=== PATIENT | female | born 1980 | race Two or more races ===

== ENCOUNTER 2025-07-22 12:53 | Outpatient (CLI) | payer OTHER | END 2025-07-22 13:04 | disposition home or self-care (01) | LOC: SONOGRAMA 12:53 | PROVIDERS: ATTEND Internal Medicine | DX: E04.2 Nontoxic multinodular goiter (principal) ==

== ENCOUNTER 2025-07-23 10:25 | Outpatient (CLI) | payer OTHER ==
[2025-07-23 11:58] LABS: URINE APPEARANCE Clear; URINE BILIRRUBIN Negative (NEGATIVE); URINE BLOOD Small; URINE COLOR Yellow; URINE GLUCOSE Negative (NEGATIVE); URINE KETONE Negative (NEGATIVE); URINE LEUKOCYTE Small; URINE NITRATE Negative; URINE PROTEIN Negative (NEGATIVE); URINE UROBILINOGEN 0.2 E.U./dl
[2025-07-23 12:03] LABS: URINE BACTERIA 1076.2 uL (0.0-1933); URINE EPITHELIAL CELLS 78.6 uL (0.0-38.8); URINE RBC 13.7 uL (0.0-20.8); URINE WBC 29.5 uL (0.0-23.2)
[2025-07-23 12:07] LABS: BASO % 0.7 % (0.1-1.2); EOS # 0.11 (0.04-0.54); EOS % 1.5 % (0.7-7.0); LYMPH # 2.13 (1.18-3.74); LYMPH % 29.2 % (19.3-53.1); MEAN PLATELET VOLUME 10.20 fl (9.4-12.4); MONO # 0.41 (0.24-0.82); MONO % 5.6 % (4.7-12.5); NEUT # 4.56 (1.56-6.13); NEUT % 62.5 % (34.0-71.1); RED CELL DISTRIBUTION WIDTH 15.7 % (11.6-14.4)
[2025-07-23 12:20] LABS: URINE CAST 0.00 uL (0.0-1.40)
[2025-07-23 13:57] LABS: ALT/SGPT 26.0 U/L (12-78); AST/SGOT 12.0 U/L (15-37); BILIRUBIN TOTAL 0.27 mg/dL (0.3-1.2); BUN CREA RATIO 24.0 (7.0-25.0); CHOL HDL RATIO 5.7 (0-5.0); CREATININE SERUM 0.62 mg/dL (0.55-1.02); GFR 105.06; GLOBULINA 3.7 G/DL (2.4-3.5); GLUCOSE FASTING 83.0 mg/dL (65-100); HDL 43.0 mg/dl (40-60); LDL 159.0 mg/dl (0-130); OSMOLALITY SERUM 279.0 MOSM/KG (275-295); VLDL 42.0 (0-39)
[2025-07-23 15:02] LABS: T3 TOTAL 1.19 ng/ml (0.846-2.02); VITAMIN D3 25 HYDROXY 19.79 ng/ml (30-120)
[2025-07-23 22:17] LABS: T4 TOTAL 6.14 UG/DL (4.8-13.9)
[2025-07-23 23:10] LABS: T4 FREE 0.78 NG/ML (0.76-1.46); TSH 2.72 uIU/mL (0.358-3.74)
== END 2025-07-23 10:30 | disposition home or self-care (01) ==
LOC: LAB 10:25
PROVIDERS: ATTEND Internal Medicine
DX: E11.65 Type 2 diabetes mellitus with hyperglycemia (principal); E78.5 Hyperlipidemia, unspecified; E03.8 Other specified hypothyroidism; E55.9 Vitamin D deficiency, unspecified; E53.8 Deficiency of other specified B group vitamins; I10 Essential (primary) hypertension; I11.9 Hypertensive heart disease without heart failure; E78.1 Pure hyperglyceridemia; E11.9 Type 2 diabetes mellitus without complications; E03.9 Hypothyroidism, unspecified

== ENCOUNTER 2025-07-25 08:10 | Outpatient (CLI) | payer OTHER | END 2025-07-25 08:26 | disposition home or self-care (01) | LOC: MAMO-SONO 08:10 | PROVIDERS: ATTEND Obstetrics & Gynecology | DX: N60.21 Fibroadenosis of right breast (principal); N60.22 Fibroadenosis of left breast ==